=== PATIENT | female | born 1955 | race Caucasian/White ===

== ENCOUNTER 2018-12-12 14:55 | Emergency (ER) | payer MEDICARE ==
[~2018-12-12] VITALS: Ht 170.2 cm; Wt 82.7 kg
[2018-12-12] MEDS ORDERED: ZOLOFT100 MG PO (15:46)
[2018-12-12] MEDS ORDERED: LISINOPRIL10 MG PO (15:47)
[2018-12-12] MEDS ORDERED: ESTRADIOL10 MCG PO (15:48)
[2018-12-12] MEDS ORDERED: OMEPRAZOLE20 M1 PO (15:49)
[2018-12-12 16:15] VITALS: BP 146/71
== END 2018-12-12 16:10 ==
LOC: ED 14:55
PROC: 3E0T3BZ Introduction of Anesthetic Agent into Peripheral Nerves and Plexi, Percutaneous Approach (ICD-10-PCS; principal; 2018-12-12)
DX: S62.621B Displaced fracture of middle phalanx of left index finger, initial encounter for open fracture (principal); I10 Essential (primary) hypertension; W31.2XXA Contact with powered woodworking and forming machines, initial encounter; Y92.009 Unspecified place in unspecified non-institutional (private) residence as the place of occurrence of the external cause

== ENCOUNTER 2021-07-04 06:53 | Day surgery (SDC) | payer MEDICARE ==
[~2021-07-04 06:53] MED LIST: ACYCLOVIR400 MG PO; AMITRIPTYLINE H75 MG PO; BIOTINEX PO; CALCIUM280 MG PO; DITROPAN XL10 MG PO; ESTRADIOL10 MCG PO; FOLATE400 MCG PO; HYDROCHLOROT25 MG PO; LISINOPRIL10 MG PO; LYCOPENE10 MG PO; MAGNESIUM 250 M1 TAB PO; MAGNESIUM CITR100 MG PO; MELOXICAM7.5 MG PO; MULT VITAMIN PO; NIACIN PO; OMEPRAZOLE20 M1 PO; QC VITAMIN B PO; SUPER B COM2 PO; VITAMIN B-12500 MCG PO; VITAMIN B-225 MG PO; VITAMIN B-625 MG PO; VITAMIN C250 MG PO; ZINC CHELATED PO; ZOLOFT100 MG PO
[2021-07-04] MEDS ORDERED: SUPER COLLAGEN PO (07:21)
[2021-07-04] MEDS ORDERED: HYDROCODONE/ACE1 T12 PO (09:21)
[2021-07-04 09:55] VITALS: BP 123/67
== END 2021-07-04 09:51 | disposition home or self-care (01) ==
LOC: ORM 06:53
PROVIDERS: ATTEND Neurological Surgery
PROC: 01N50ZZ Release Median Nerve, Open Approach (ICD-10-PCS; principal; 2021-07-04)
DX: G56.02 Carpal tunnel syndrome, left upper limb (principal)

== ENCOUNTER 2021-10-08 20:34 | Emergency (ER) | payer MEDICARE ==
[~2021-10-08] VITALS: Ht 170.2 cm; Wt 75.0 kg
[~2021-10-08 20:34] MED LIST changes: +HYDROCODONE/ACE1 T12 PO; +SUPER COLLAGEN PO
[2021-10-08 20:57] VITALS: BP 167/89
[2021-10-08] MEDS ORDERED: ACYCLOVIR400 MG PO (21:13)
[2021-10-08 21:41] LABS: HEMATOCRIT 37.6 % (37.0-47.0); HEMOGLOBIN 12.5 g/dl (12.0-16.0); IMMATURE GRANULOCYTES 0.2 % (0.0-5.0); MEAN CELL VOLUME 91.9 fL CALC (80.0-100.0); MEAN CORPUSCULAR HGB 30.6 pG CALC (26.0-32.0); MEAN CORPUSCULAR HGB CONC 33.2 g/dL CAL (32.0-36.0); NEUT# 8.89 thou/uL (2.00-7.15); RED BLOOD COUNT 4.09 mill/uL (4.20-5.60); RED CELL DISTRI WIDTH 13.5 % (11.5-15.5)
[2021-10-08 21:58] LABS: ALBUMIN 4.4 g/dL (3.2-5.0); ALKALINE PHOSPHATASE 63 u/l (38-126); ANION GAP 13 (6-22 (CALC)); BILIRUBIN, TOTAL 0.4 mg/dL (0.0-1.4); BUN 19 mg/dL (8-23); BUN/CREATININE RATIO 18 (12-20 (CALC)); CARBON DIOXIDE 29 mmol/l (22-30); CHLORIDE 99 mmol/l (95-108); CREATININE 1.1 mg/dL (0.5-1.0); GFR 49 ML/MIN (>=60 (CALC)); GFR FOR AFR.AMER. 60 ML/MIN (>=60 (CALC)); LIPASE 72 u/l (23-300); SGOT/AST 29 u/l (9-36); SODIUM 138 mmol/l (137-146); TOTAL PROTEIN 7.6 g/dL (6.3-8.2)
[2021-10-08 22:00] LABS: ACT PARTIAL THROMBO TIME 22.1 SECONDS (20.0-32.5); INTERNATIONAL NORMALIZED RATIO 0.9 RATIO (0.7-1.3); PROTHROMBIN TIME 9.8 SECONDS (9.0-12.5)
[2021-10-09] MEDS ORDERED: HYDROCO/APAP1 TA9 PO (00:22)
== END 2021-10-09 00:55 | disposition home or self-care (01) ==
LOC: ED 20:34
DX: R07.89 Other chest pain (principal); I10 Essential (primary) hypertension; F32.A Depression, unspecified; K21.9 Gastro-esophageal reflux disease without esophagitis
CPT/HCPCS: Q9967